=== PATIENT | male | born 1995 ===

== ENCOUNTER 2018-07-16 12:23 | Emergency (ER) | payer OTHER ==
[~2018-07-16] VITALS: Ht 175.3 cm; Wt 112.8 kg
[2018-07-16 12:26] VITALS: TEMP 36.5; Ht 175.3 cm; Wt 112.8 kg
[2018-07-16] MEDS ORDERED: SILVER NITR/POTASSIUM NITRATE APPLICATOR EXT STA (12:50)
[2018-07-16] MEDS ORDERED: SILVER NITR/POTASSIUM NITRATE APPLICATOR ONE (12:51)
[2018-07-16 13:06] VITALS: BP 126/78; PULSE 76; O2SAT 97
--- NOTE | 2018-07-16 15:56 | EMERGENCY ROOM VISIT NOTE ---
ED Visit Note First contact with patient: 12:41 CHIEF COMPLAINT: Left nosebleed HISTORY OF PRESENT ILLNESS: This 23-year-old [place] male patient developed sudden onset of a nosebleed about 1 hour ago. He has had several nosebleeds over the last 3 months. He was in [place] at the time. He began bleeding again this morning. He has a history of cautery in the other nostril that has worked well for the last 8-10 years. There was no trauma to the nose and no recent upper respiratory infection. The patient is not on Coumadin or other anticoagulants. No difficulty breathing, no cough, no headache or sore throat. His father accompanies him today. He is requesting cautery of the left nares. REVIEW OF SYSTEM: HEENT: No dizziness, visual problems, hearing loss, or tinnitus. There is no difficulty swallowing and no oral lesions are present. PULMONARY: No cough, shortness of breath, sputum production or hemoptysis. CARDIOVASCULAR: No chest pain, palpitations, shortness of breath or peripheral edema. GASTROINTESTINAL: No diarrhea, constipation, nausea, vomiting, or abdominal pain. GENITOURINARY: No dysuria, frequency, urgency or nocturia. NEUROLOGIC: No weakness, muscle tenderness, epilepsy or history of neurological problems. MUSCULOSKELETAL: No history of joint tenderness/swelling. No history of arthritis or arthralgias. SKIN: No rashes or lesions. PSYCHIATRIC: No history of depression or mental illness. ENDOCRINE: No history of diabetes, thyroid disorders, or abnormal hair growth. Allergies: NKDA Current medications: None PMH: The patient is healthy; there is no significant medical or surgical history. Family history: Unremarkable. Parents are living. SOCIAL HISTORY: Patient is a [employer] student. Just arrived from [facility] [place]. Single. Unemployed. No tobacco use. PHYSICAL EXAM: Vital Signs: Reviewed Nurse's notes. Afebrile. General appearance: Well-developed, well-nourished, young male, in no acute distress. Sitting on the bed. The patient is alert, oriented, coherent, and cooperative. Skin: Warm and dry with good turgor. No rashes or lesions. No ecchymosis or erythema. The patient is not diaphoretic. No abrasions. HEENT: Normocephalic atraumatic. Eyes PERRLA, EOMI. No conjunctiva or scleral injection. Nares patent bilaterally without turbinate enlargement. No active drainage. Blood is present in the left nares. There is punctate bleeding on the septum. Oropharynx without erythema or exudate. Uvula midline, oral mucosa moist. No lesions present. There is no tachypnea or dyspnea. EMERGENCY DEPARTMENT COURSE: Patient's left nares was cauterized with a silver nitrate stick. Good eschar was present. No further bleeding occurred. Nares was coated with bacitracin ointment. DIAGNOSIS: Left-sided epistaxis DISCHARGE INSTRUCTIONS & TREATMENT: Patient and his father were educated regarding today's findings. Conservative care measures were discussed. Apply firm pressure on the nose for 15 minutes if bleeding recurs. If you are unable to get it stopped after that, return to the emergency department for further exam and treatment. Blow the nose very gently if at all over the next 3 days. Avoid picking the nose. Apply triple antibiotic ointment with a Q-tip daily for the next 5 days. Nosebleed handout was provided. Return to the ED for any other concerns. Vital Signs Date Time Temp Pulse Resp B/P (MAP) Pulse Ox O2 Delivery O2 Flow Rate FiO2 07/16/18 13:06 76 16 126/78 97 Room Air 07/16/18 12:26 36.5 83 18 131/85 96 Room Air Medications Administered Medications (Trade) Dose Ordered Sig/Maria M Route Start Time Stop Time Status Last Admin Dose Admin Silver Nitrate/ Potassium Nitrate (Silver Nitrate Applicators) 1 appl NOW STAT EXT 07/16/18 12:50 07/16/18 12:51 DC 07/16/18 12:50 1 APPL Departure Information Impression Primary Impression: Left-sided nosebleed Dispostion Home / Self-Care Condition FAIR Referrals No Doctor, Assigned (PCP) Forms WORK / SCHOOL INSTRUCTIONS, HOME CARE DOCUMENTATION FORM, IMPORTANT VISIT INFORMATION Patient Instructions Nosebleeds - [facility], [employer] Additional Instructions Avoid blowing your nose for the next 3 days-also avoid any nasal trauma Apply triple antibiotic ointment in the left nostril daily for the next 5 days Follow-up with [facility] or return to the the ED for any acute changes
== END 2018-07-16 13:23 | disposition home or self-care (01) ==
LOC: C.EDB 12:25 → C.EDD 13:23
DX: R04.0 Epistaxis (principal)